=== PATIENT | female | born 1965 ===

== ENCOUNTER 2017-02-19 01:38 | Emergency (ER) | payer OTHER ==
[2017-02-19 01:53] VITALS: RESP 18
--- NOTE | 2017-02-19 04:34 | C.PDOC ---
History Of Present Illness Patient presents to the ER c/o left elbow and lower back pain for 3 days. Patient states mechanical fall a few days prior then was seen at [facility] and was discharged. Patient notes she still has a lot of pain, which prompted her visit. Denies weakness, numbness, nausea, vomiting, LOC, or any other complaints. Time Seen by Provider: 02/19/17 02:42 Chief Complaint (Nursing): Back Pain History Per: Patient History/Exam Limitations: no limitations Onset/Duration Of Symptoms: Days (3) Current Symptoms Are (Timing): Still Present Quality Of Discomfort: "Pain" Severity: Mild Recent travel outside of the [place]: No Additional History Per: Patient Past Medical History Reviewed: Historical Data, Nursing Documentation, Vital Signs Vital Signs: Last Vital Signs Temp 98.1 F 02/19/17 05:17 Pulse 82 02/19/17 05:17 Resp 18 02/19/17 05:17 BP 103/66 02/19/17 05:17 Pulse Ox 97 02/19/17 05:17 - Medical History PMH: HTN Family History: States: Unknown Family Hx - Social History Hx Alcohol Use: No Hx Substance Use: No - Immunization History Hx Tetanus Toxoid Vaccination: No Hx Influenza Vaccination: No Hx Pneumococcal Vaccination: No Review Of Systems Except As Marked, All Systems Reviewed And Found Negative. Gastrointestinal: Negative for: Nausea, Vomiting Musculoskeletal: Positive for: Arm Pain (Left), Back Pain (Lower) Neurological: Negative for: Weakness, Numbness, Other (LOC) Physical Exam - Physical Exam Appears: Non-toxic, No Acute Distress Skin: Warm, Dry Head: Atraumatic, Normacephalic Chest: Symmetrical Cardiovascular: Rhythm Regular Respiratory: Normal Breath Sounds, No Rales, No Rhonchi, No Wheezing Back: Paraspinal Tenderness (Diffuse paralumbar tenderness) Extremity: Normal ROM, Tenderness (Moderate), Capillary Refill (<2secs), Swelling (Moderate), Other (Moderate ecchymosis) Neurological/Psych: Oriented x3, Normal Speech, Normal Cognition, Normal Motor, Normal Sensation, Other (No focal deficit) ED Course And Treatment O2 Sat by Pulse Oximetry: 98 (RA) Pulse Ox Interpretation: Normal Medical Decision Making Medical Decision Making: Xrays of the elbow and LS spine is negative. On re-exam, the patient is moving all extremities without difficulty and patient is ambulatory in the ED with steady gait. The patient was instructed to follow up with the medical doctor/ workmans comp within 1-2 days. Disposition - Disposition Referrals: Magan Truong MD [Primary Care Provider] - Disposition: HOME/ ROUTINE Disposition Time: 05:03 Condition: GOOD Additional Instructions: Follow up with the medical doctor within 1-2 days, Return if worsened. Prescriptions: Acetaminophen [Tylenol] 325 mg PO Q6 PRN #30 tab PRN Reason: Pain, Mild (1-3) Naproxen [Naprosyn] 500 mg PO BID #20 tab Instructions: Contusion in Adults (DC), Back Pain (ED) Forms: [employer] (Bhutanese) Print Language: YORUBA - Clinical Impression Clinical Impression: Elbow contusion, Contusion of back - Scribe Statement The provider has reviewed the documentation as recorded by the Scribhermila perez All medical record entries made by the Gloryibe were at my direction and personally dictated by me. I have reviewed the chart and agree that the record accurately reflects my personal performance of the history, physical exam, medical decision making, and the department course for this patient. I have also personally directed, reviewed, and agree with the discharge instructions and disposition.
[2017-02-19 05:19] VITALS: BP 103/66; PULSE 82; TEMP 98.1
--- NOTE | 2017-02-19 08:20 | RAD ---
PROCEDURE: Radiographs of the left elbow. HISTORY: fall swell, pain to the posterior Left elbow COMPARISON: No prior. FINDINGS: BONES: Normal. No fracture. JOINTS: Normal. No osteoarthritis. SOFT TISSUES: Normal. JOINT EFFUSION: None. OTHER FINDINGS: None IMPRESSION: Unremarkable radiographs of the left elbow.
--- NOTE | 2017-02-19 08:21 | RAD ---
PROCEDURE: Radiographs of the Lumbar Spine. HISTORY: back pain, fall COMPARISON: No prior. FINDINGS: BONES: Vertebral bodies are maintained in height. Transverse processes and posterior elements appear intact. There is minimal dextroscoliotic curvature. DISC SPACES: Disc space narrowing and osteophyte formation about the L5-S1 disc space consistent with degenerative disc disease. The remaining disc spaces are maintained in height. OTHER FINDINGS: None. IMPRESSION: Degenerative disc disease at L5-S1. No fracture/ dislocation. Minimal dextroscoliosis.
[2017-02-20 16:34] VITALS: O2SAT 98
== END 2017-02-19 05:19 | disposition home or self-care (01) ==
LOC: C.ER 01:38 → SUPCPDRO 01:38 → C.ER 05:19
DX: S50.02XD Contusion of left elbow, subsequent encounter (principal); S30.0XXD Contusion of lower back and pelvis, subsequent encounter; W19.XXXD Unspecified fall, subsequent encounter